=== PATIENT | male | born 1955 | race Caucasian/White ===

== ENCOUNTER 2016-11-04 14:11 | Inpatient (IN) | payer OTHER ==
[~2016-11-04] VITALS: Ht 167.6 cm; Wt 69.5 kg
[2016-11-11] MEDS ORDERED: METF500T PO (10:15)
[2016-11-11] MEDS ORDERED: RED600TA PO (10:15)
[2016-11-18] MEDS ORDERED: POVIDONE IODINE 5% (ANTISEPSIS KIT) 4 APPLICATIONS EACH NARE PRN (11:00)
[2016-11-18] MEDS ORDERED: METOPROLOL TARTRATE 25 MG TAB PO PRN (11:00)
[2016-11-18] MEDS ORDERED: INSULIN HUMAN REGULAR 1,000 UNITS/10 ML VIAL SQ PRN (11:00)
[2016-11-18] MEDS ORDERED: CHLORHEXIDINE GLUCONATE 2 % 1 PACK (2 CLOTHS) TOPICAL PRN (11:00)
[2016-11-18] MEDS ORDERED: LACTATED RINGER'S 1000 ML IV PRN (11:00)
[2016-11-18] MEDS ORDERED: SODIUM CHLORID 0.9% 500 ML IV PRN (11:00)
[2016-11-18 11:18] VITALS: BP 124/75; PULSE 71; RESP 18; TEMP 98.1; O2SAT 98
[2016-11-18] MEDS ORDERED: ceFAZolin 2 GM PREMIX 50 ML IV ONE (11:30)
[2016-11-18] MEDS ORDERED: DEXT 5%-NACL 0.9% 1000 ML INJ 1,000 ML IV SCH (11:30)
[2016-11-18] MEDS ORDERED: METRONIDAZOLE 500 MG/100 ML ISONTONIC SOLN IV ONE (11:30)
[2016-11-18] MEDS ORDERED: PHENYLEPH/NS 1000 MCG/10 ML SYR IV ONE (12:00)
[2016-11-18] MEDS ORDERED: ePHEDrine/NS 25 MG/5 ML SYR IV ONE (12:00)
[2016-11-18] MEDS ORDERED: LACTATED RINGER'S 1000 ML INJ 4,000 ML IV ONE (12:00)
[2016-11-18] MEDS ORDERED: ONDANSETRON HCL 4 MG/2 ML VIAL IV PUSH ONE (12:00)
[2016-11-18] MEDS ORDERED: PROPOFOL 200 MG/20 ML AMP IV ONE (12:00)
[2016-11-18] MEDS ORDERED: SODIUM CHLORID 0.9% 500 ML BAG IV ONE (12:00)
[2016-11-18] MEDS ORDERED: FAMOTIDINE 20 MG/2 ML VIAL ONE (12:06)
[2016-11-18] MEDS ORDERED: MIDAZOLAM HCL 2 MG/2 ML VIAL ONE (12:06)
[2016-11-18] MEDS ORDERED: ACETAMINOPHEN 1000 MG/100 ML VIAL IV ONE (12:20)
[2016-11-18] MEDS ORDERED: SUGAMMADEX SODIUM 200 MG/2 ML VIAL IV PUSH ONE ×2 (12:20)
[2016-11-18] MEDS ORDERED: fentaNYL CITRATE 250 MCG/5 ML AMP ONE ×2 (12:20→16:58)
--- NOTE | 2016-11-18 13:35 | PD.OP ---
Operative Report Date of Surgery: Nov 18, 2016 Preoperative Diagnosis: Colon cancer Postoperative Diagnosis: Same Procedure: Cystoscopy with bilateral ureteral catheter placement Anesthesia: GenAmaris Surgeon: Walter Kearns Ornamental Rail Installer(s): None Resident Surgeon: None Operation and Findings: 61 year-old male colon cancer removed undergo robotic-assisted laparoscopic colectomy by Dr. Almanza. Request for made bilateral ureteral catheter placement patient brought to the operating room and placed in dorsal lithotomy position. His prepped and draped in usual sterile fashion preprocedure antibodies were given. 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 22 Telugu scope was inserted bladder taylor cystoscopy did not reveal any abnormalities. Left ureteral orifice was identified for majority catheter was inserted up the left ureter without difficulty and this was then repeated on the right side. Jacobson was inserted the catheters were attached the Jacobson tolerated the procedure well. Walter Kearns DO Nov 18, 2016 13:35
[2016-11-18] MEDS ORDERED: ceFAZolin INJ 1,000 MG VIAL ONE (16:37)
[2016-11-18] MEDS ORDERED: ceFAZolin INJ 1,000 MG VIAL IV ONE (17:06)
[2016-11-18] MEDS ORDERED: ACETAMINOPHEN 325 MG TAB PO PRN (19:15)
[2016-11-18] MEDS ORDERED: POTASSIUM CHLOR 20 MEQ PREMIX 100 ML IV PRN (19:15)
[2016-11-18] MEDS ORDERED: SODIUM CHLORIDE 0.9% FLUSH 5 ML FLUSH IVF PRN (19:15)
[2016-11-18] MEDS ORDERED: Post-op Orders (for Pharmacy) MISC XX ONE (19:15)
[2016-11-18] MEDS ORDERED: BENZOCAINE 6 MG/MENTHOL 10 MG LOZENGE BUCCAL PRN (19:15)
[2016-11-18] MEDS ORDERED: ACETAMINOPHEN/HYDROcodone 325 MG/5 MG TAB PO PRN ×2 (19:15)
[2016-11-18] MEDS ORDERED: ONDANSETRON HCL 4 MG/2 ML VIAL IV PRN (19:15)
[2016-11-18] MEDS ORDERED: MORPHINE SULFATE 30 MG/30 ML PCA IV SCH (19:15)
[2016-11-18] MEDS ORDERED: diphenhydrAMINE HCL 50 MG/ML VIAL IV PRN (19:15)
[2016-11-18] MEDS ORDERED: NALOXONE HCL 0.4 MG/ML AMP IV PRN (19:15)
[2016-11-18] MEDS ORDERED: ENALAPRILAT 1.25 MG/ML VIAL IV PRN (19:15)
[2016-11-18] MEDS ORDERED: ENALAPRILAT 2.5 MG/2 ML VIAL IV PRN (19:15)
[2016-11-18] MEDS ORDERED: POTASSIUM CHLOR 40 MEQ PREMIX 100 ML IV PRN (19:15)
[2016-11-18] MEDS ORDERED: DO NOT ADM ANY ANTICOAGULANT DRUGS PRN (19:27)
[2016-11-18] MEDS: D5-NS + KCL 20 MEQ INJ 1,000 ML IV SCH (19:45)
[2016-11-18] MEDS: metroNIDAZOLE 500 MG INJ 100 ML IV SCH (19:52)
[2016-11-18] MEDS: KETOROLAC TROMETHAMINE 30 MG/ML (IVP) VIAL IVP SCH (19:52)
[2016-11-18 19:58] LABS: AUTOMATED NEUTROPHIL # 6.3 TH/MM3 (1.8-7.7); BASOPHIL % 0.5 % (0.0-2.0); HEMATOCRIT 40.7 % (39.0-51.0); HEMO FLAGS DIFF FINAL; LYMPH % 6.4 % (9.0-44.0); LYMPHOCYTE # 0.5 TH/MM3 (1.0-4.8); MEAN CELL VOLUME 94.5 FL (80.0-100.0); MEAN CORPUSCULAR HEMOGLOBIN 32.1 PG (27.0-34.0); MEAN CORPUSCULAR HGB CONC 33.9 % (32.0-36.0); NEUT % 90.1 % (16.0-70.0); PLATELET COUNT 154 TH/MM3 (150-450); RED CELL DISTRIBUTION WIDTH 12.6 % (11.6-17.2)
[2016-11-18 20:45] VITALS: BP 137/85; PULSE 80; TEMP 97.5; O2SAT 100
[2016-11-18 20:49] LABS: BICARBONATE 19.9 MEQ/L (21.0-32.0); POTASSIUM 4.3 MEQ/L (3.5-5.1)
[2016-11-18 21:00] VITALS: PULSE 78
[2016-11-18] MEDS: SODIUM CHLORIDE 0.9% FLUSH 5 ML FLUSH IVF SCH (21:00)
[2016-11-18 22:00] VITALS: PULSE 78
[2016-11-18] MEDS: PCA - TOTAL MG MORPHINE DELIVERED PER SHIFT SCH (22:00)
[2016-11-18 23:00] VITALS: BP 129/70; PULSE 66; PULSE 86; TEMP 97.9; O2SAT 98
[2016-11-19] VITALS (16 sets, daily range): BP systolic 114–141; BP diastolic 63–79; PULSE 63–86; RESP 16–20; TEMP 97.8–99.1; O2SAT 93–100
[2016-11-19] MEDS: D5-NS + KCL 20 MEQ INJ 1,000 ML IV SCH (02:55)
[2016-11-19] MEDS: KETOROLAC TROMETHAMINE 30 MG/ML (IVP) VIAL IVP SCH ×4 (02:55→19:46)
[2016-11-19] MEDS: metroNIDAZOLE 500 MG INJ 100 ML IV SCH ×2 (02:55→12:51)
[2016-11-19 04:33] LABS: AUTOMATED NEUTROPHIL # 4.4 TH/MM3 (1.8-7.7); BASOPHIL % 0.3 % (0.0-2.0); HEMATOCRIT 37.3 % (39.0-51.0); HEMO FLAGS DIFF FINAL; LYMPH % 12.8 % (9.0-44.0); LYMPHOCYTE # 0.7 TH/MM3 (1.0-4.8); MEAN CELL VOLUME 94.4 FL (80.0-100.0); MEAN CORPUSCULAR HGB CONC 33.9 % (32.0-36.0); MONO % 7.3 % (0.0-8.0); NEUT % 79.6 % (16.0-70.0); PLATELET COUNT 152 TH/MM3 (150-450); RED BLOOD COUNT 3.95 MIL/MM3 (4.50-5.90); RED CELL DISTRIBUTION WIDTH 12.5 % (11.6-17.2); WHITE BLOOD COUNT 5.5 TH/MM3 (4.0-11.0)
[2016-11-19 05:00] LABS: BICARBONATE 23.8 MEQ/L (21.0-32.0); POTASSIUM 4.5 MEQ/L (3.5-5.1)
[2016-11-19 05:25] LABS: CALCIUM-PROTEIN CORRECTED 8.1 MG/DL (8.5-10.1)
[2016-11-19] MEDS: PCA - TOTAL MG MORPHINE DELIVERED PER SHIFT SCH ×3 (06:00→21:23)
[2016-11-19] MEDS: PANTOPRAZOLE SODIUM 40 MG VIAL IVP SCH (08:02)
[2016-11-19] MEDS: SODIUM CHLORIDE 0.9% FLUSH 5 ML FLUSH IVF SCH ×2 (09:00→19:47)
--- NOTE | 2016-11-19 13:09 | HHI.PR ---
Subjective Remarks No N or V. No BMs Objective Vital Signs Date Time Temp Pulse Resp B/P Pulse Ox O2 Delivery O2 Flow Rate FiO2 11/19/16 11:00 66 11/19/16 11:00 98.4 63 16 122/70 100 11/19/16 10:00 66 11/19/16 09:00 70 11/19/16 08:00 76 11/19/16 07:15 99.0 69 16 114/63 98 11/19/16 07:00 66 11/19/16 06:00 70 11/19/16 06:00 16 11/19/16 05:00 72 11/19/16 04:00 74 11/19/16 03:00 97.8 73 119/65 98 11/19/16 03:00 86 11/19/16 02:00 76 11/19/16 00:00 74 11/18/16 23:00 66 11/18/16 23:00 97.9 86 129/70 98 11/18/16 22:00 78 11/18/16 22:00 18 11/18/16 21:00 78 11/18/16 20:45 97.5 80 137/85 100 11/18/16 20:15 71 16 143/73 100 Room Air 11/18/16 20:00 80 16 152/74 100 Room Air 11/18/16 19:54 14 11/18/16 19:45 71 16 147/80 100 Room Air 11/18/16 19:30 83 16 137/66 100 Nasal Cannula 2 11/18/16 19:15 97.4 87 16 145/71 100 Nasal Cannula 2 I/O 11/18/16 11/18/16 11/18/16 11/19/16 11/19/16 11/19/16 07:00 15:00 23:00 07:00 15:00 23:00 Intake Total 4700 ml 1980 ml Output Total 800 ml 900 ml Balance 3900 ml 1080 ml Intake Oral 0 ml 480 ml IV Total 200 ml 1500 ml Other 4500 ml Output Urine Total 900 ml Estimated Blood Loss 100 ml Other 700 ml Result Diagram: 11/19/16 0325 11/19/16 032 Objective Remarks VS-S Abd: soft,dressings dry I&Os-OK Labs-OK Assessment and Plan Assessment and Plan Stable POD#1 1 Ureteral cath removed, FLD, Decrease IVs-Remove Dextrose Shree Barber MD Nov 19, 2016 13:09
[2016-11-19] MEDS ORDERED: DEXTROSE 50% IN WATER 50 ML VIAL(D50) IV PUSH PRN (13:15)
[2016-11-19] MEDS ORDERED: GLUCAGON 1 MG/ML VIAL OTHER PRN (13:15)
[2016-11-19] MEDS: NS + KCL 20 MEQ INJ 1,000 ML IV SCH ×2 (13:35→23:27)
[2016-11-19] MEDS: INSULIN NovoLIN REGULAR SUPPLEMENTAL SCALE SQ SCH ×2 (16:00→21:00)
[2016-11-19] MEDS: HEPARIN SODIUM - SQ 10,000 UNITS/ML VIAL SQ SCH (18:49)
[2016-11-20 03:00] VITALS: BP 147/81; PULSE 66; RESP 16; TEMP 98.3; O2SAT 95
[2016-11-20] MEDS: KETOROLAC TROMETHAMINE 30 MG/ML (IVP) VIAL IVP SCH ×4 (03:15→20:25)
[2016-11-20] MEDS: INSULIN NovoLIN REGULAR SUPPLEMENTAL SCALE SQ SCH ×4 (05:37→20:29)
[2016-11-20] MEDS: PCA - TOTAL MG MORPHINE DELIVERED PER SHIFT SCH ×2 (05:37→11:49)
[2016-11-20] MEDS: HEPARIN SODIUM - SQ 10,000 UNITS/ML VIAL SQ SCH ×2 (05:39→16:52)
[2016-11-20 07:00] VITALS: BP 146/82; PULSE 70; RESP 16; O2SAT 96
[2016-11-20 07:23] LABS: AUTOMATED NEUTROPHIL # 5.7 TH/MM3 (1.8-7.7); BASOPHIL % 0.5 % (0.0-2.0); EOSINOPHIL % 0.2 % (0.0-4.0); HEMATOCRIT 37.8 % (39.0-51.0); HEMO FLAGS DIFF FINAL; LYMPH % 14.8 % (9.0-44.0); LYMPHOCYTE # 1.1 TH/MM3 (1.0-4.8); MEAN CELL VOLUME 93.9 FL (80.0-100.0); MEAN CORPUSCULAR HEMOGLOBIN 32.3 PG (27.0-34.0); MEAN CORPUSCULAR HGB CONC 34.4 % (32.0-36.0); MONO % 6.6 % (0.0-8.0); NEUT % 77.9 % (16.0-70.0); PLATELET COUNT 146 TH/MM3 (150-450); RED BLOOD COUNT 4.03 MIL/MM3 (4.50-5.90); WHITE BLOOD COUNT 7.3 TH/MM3 (4.0-11.0)
[2016-11-20 08:13] LABS: BICARBONATE 24.6 MEQ/L (21.0-32.0); POTASSIUM 4.3 MEQ/L (3.5-5.1)
[2016-11-20] MEDS: SODIUM CHLORIDE 0.9% FLUSH 5 ML FLUSH IVF SCH ×2 (09:00→20:29)
[2016-11-20] MEDS: PANTOPRAZOLE SODIUM 40 MG VIAL IVP SCH (09:28)
[2016-11-20] MEDS: NS + KCL 20 MEQ INJ 1,000 ML IV SCH (09:39)
--- NOTE | 2016-11-20 10:45 | HHI.PR ---
Subjective Remarks No N or V. Small BM Objective Vital Signs Date Time Temp Pulse Resp B/P Pulse Ox O2 Delivery O2 Flow Rate FiO2 11/20/16 05:37 16 11/20/16 03:00 98.3 66 16 147/81 95 11/19/16 23:10 98.7 75 16 141/79 95 11/19/16 21:23 16 11/19/16 20:04 93 21 11/19/16 19:50 99.1 74 16 128/76 97 11/19/16 16:07 16 11/19/16 15:00 98.3 68 20 131/70 98 11/19/16 14:00 12 11/19/16 11:00 66 11/19/16 11:00 98.4 63 16 122/70 100 I/O 11/19/16 11/19/16 11/19/16 11/20/16 11/20/16 11/20/16 06:59 14:59 22:59 06:59 14:59 22:59 Intake Total 1980 ml 2574 ml 1799 ml Output Total 900 ml 1400 ml 850 ml Balance 1080 ml 1174 ml 949 ml Intake Oral 480 ml 1230 ml 720 ml IV Total 1500 ml 1344 ml 1079 ml Output Urine Total 900 ml 1400 ml 850 ml # Bowel Movements 0 Result Diagram: 11/20/16 0609 11/20/16 0609 Objective Remarks VS-S Abd: soft,dressings removed. Wound clean I&Os-OK Labs-OK Assessment and Plan Assessment and Plan Stable POD#2 Regular diet, Decrease IV, D/C [employer]ODUCT [employer] Shree Barber MD Nov 20, 2016 10:45
[2016-11-20 11:00] VITALS: BP 129/79; PULSE 74; RESP 20; TEMP 98.7; O2SAT 96
[2016-11-20 16:00] VITALS: BP 144/69; PULSE 73; RESP 19; TEMP 97.8; O2SAT 97
[2016-11-20 20:00] VITALS: BP 151/78; PULSE 72; RESP 20; TEMP 98.1; O2SAT 98
--- NOTE | 2016-11-20 20:45 | MP ---
cc: NERY DAILEY M.D. TYSHAWN,RHINA HAWTHORNE M.D., M.D., GERARDO MD DATE OF SURGERY November 18, 2016 PREOPERATIVE DIAGNOSES 1. Sigmoid colon cancer. 2. Cecal polyp with high-grade dysplasia. 3. History of ascending colon polyp with high-grade dysplasia and transverse colon polyp with high-grade dysplasia. POSTOPERATIVE DIAGNOSES 1. Sigmoid colon cancer. 2. Cecal polyp with high-grade dysplasia. 3. History of ascending colon polyp with high-grade dysplasia and transverse colon polyp with high-grade dysplasia. PROCEDURE Robotic subtotal colectomy. SURGEON Nery Dailey MD ORTHOPAEDIC NURSE Reid ANESTHESIA General per ET tube ESTIMATED BLOOD LOSS 200 mL OPERATIVE INDICATIONS The patient is a 58-year-old male who on recent colonoscopy was noted to have five polypoid masses in the colon. One was in the cecum. This was removed partially as an additional one was in the ascending colon, transverse colon and the sigmoid colon. The sigmoid colon did garment turner to be a cancer and the remainder of the polyps all out to have high-grade dysplasia. OPERATIVE FINDINGS Sigmoid colon cancer. A small residual cancer with no sign of any abnormalities within the liver or the remainder of the peritoneal cavity. The patient had a fairly large cecal polyp remaining. OPERATIVE COURSE The patient was brought to the operating room and placed in supine position. After induction of general anesthesia the patient was placed in Rashid stirrups and all bony prominences were carefully padded. The skin of the anterior abdominal wall as well as the perineal area was then prepped and draped in usual sterile fashion. Dr. Kearns then came in and performed cystoscopy with placement of bilateral ureteral catheters, please see his operative note for details. The trocars were then planned as follows due to the plans for the subtotal colectomy. The camera port was placed just to the right of the umbilicus and above it. A 10-12 port was placed in the right anterior axillary line just inside the right anterior superior iliac spine and in line with the umbilicus. A mirror image 10-12 was placed on the left side. A #5 assist port was placed just above the umbilical line eqidistance between the camera port and the #1 port in the right side and an 8 Da Bo port was placed eqidistant between the camera port and the left lateral port. CO2 insufflation was undertaken. A brief abdominal survey was performed. There was no notation of anything that would preclude the robotic approach. The patient was hydroplaned with head down and the omentum was brought up-and-over the transverse colon. The sigmoid colon was directed down into the left and the perineum on the right was scored. The dissection continued posterior to the vessels in this plane until the left ureter was clearly identified and swept away from the specimen. Dissection then followed the vessels up to their takeoff, the inferior mesenteric vessels from their takeoff from the aorta. These were then dissected free circumferential, doubly clamped proximally and distally divided and ligated using Hem-o-jimi clips. Dissection then continued posterior to the inferior hemorrhoidal vein dissecting free the descending colon mesentery from the posterior peritoneum. Dissection then continued inferiorly freeing the rectum from its attachments down to level of the distal rectum. Dissection was continued up and around the right side. The sigmoid colon was then retracted to the left and the lateral peroneal attachments of the sigmoid colon were dissected free. Dissection was continued up the descending colon up to the level of the splenic flexure but not around it. Dissection then continued down into the pelvis freeing the sigmoid colon and the rectum until we had full mobility of the descending colon, sigmoid colon and the proximal and mid rectum. The area of tattooing on the sigmoid colon was clearly visible. A site was then chosen for division of the of bowel just 4-5 cm distal to the area of tattooing. The mesentery at this level was divided using the harmonic scalpel and echelon Endo stapler was placed across the bowel at this level. Bowel was then divided using the echelon Endo stapler. A 29 EEA stapler was then placed up through the anus up to the rectal stump, it came up nicely and a small amount of fibrofatty tissue was cleared of the stapler circumferentially. Dissection then continued posteriorly freeing the descending colon and mesentery to the colonic mesentery up and around the splenic flexure as far as possible with the robot docked in this position. The cecum and terminal ileum were then carefully dissected free from their posterior attachments. This dissection was continued up to just below the hepatic flexure. At this point the robot was undocked, the patient was turned and he was placed in a slightly head-up position to facilitate with the remainder of the dissection. The robot was then docked again over the patient's right shoulder. The omentum was pulled away from the transverse colon and carefully dissected free along its length opening up the lesser sac beginning at the descending colon mesentery which had been opened by our previous dissection. A site was then chosen. The vessel sealer was then brought onto the field and the mesentery of the transverse colon and the ascending colon were serially divided using the vessel sealer paying particular attention to the middle colic vessels and the ileocolic vessels. Eventually we had fully released the attachments of the ascending colon, transverse colon and descending colon. A site was then chosen for division of the terminal ileum just proximal to the ileocecal valve. The mesentery at this level was serially divided and ligated using the vessel sealer. At this point it was elected to open. All dissection beds were examined and no sign of any significant bleeding was noted. The robot was then undocked. A site was then chosen for the excision and a vertical midline incision was made about 10-12 cm midway between the umbilicus and the pubic symphysis. Using electrocautery dissection was carried down to fascia of the anterior abdominal wall which was split the length of the skin incision. A wound protector was then placed. The distal stapled end of bowel was then grasped and gently pulled out through the wound protector and gently removing the rest of the colon and the terminal ileum. The previously chosen area of the terminal ileum was then viewed and the mesentery was nicely cleared. A pursestring stapling device was placed across the bowel. At this level the distal bowel was occluded with Otf clamp. The bowel was amputated and it was taken to back table where it was opened and the cecal polyp was noted to be approximately 2 cm. The sigmoid cancer was not much bigger but was somewhat puckered and was about 3 cm from the distal margin. The anvil from the 29 EEA stapler was attempted be placed into the terminal ileum but was not successful, so I elected to go with a smaller stapler. This was placed in the cut end of the bowel and the previously placed pursestring suture was then secured. The 25 EEA stapler was advanced from the anus and up to the rectal stump. The spike was advanced just posterior to the staple line. The anvil was into the spike and then the stapler was closed being careful that the bowel was not twisted. The stapler was closed and held for 30 seconds, fired and removed thus creating an anterior enterotomy. Both anastomotic rings appeared to be complete and the anastomosis appeared pink and healthy and tension-free. A small amount of warm normal saline was placed into the pelvis. The proximal bowel was occluded with digital pressure and air was insufflated into the rectum until gentle tension was noted in the anastomosis with no sign of any leakage noted. At this point the bowel lay in a nice orientation but there was some serosal thinning so I did elect to put a few stitches to kind of bring together that area on the anterior surface of the anastomosis. A small amount of SNoW was then placed posteriorly in the pelvis to assist with some previous oozing that we had noted. The fascia of the anterior abdominal wall incision was then closed in a running fashion using #1 PDS and a Tegaderm was placed over the wound. CO2 insufflation was resumed. All dissection beds were examined and there was no sign of any significant bleeding noted. The omentum was brought down to lay across the surface of the bowel. The 10/12 trocars in the right side, left side and umbilical area were closed using the crossbow closure device and 0 Vicryl suture. These were held in place but not tied until the CO2 insufflation was removed. This was removed. The fascial sutures were secured. The wounds were copiously irrigated with warm normal saline. The skin of the midline incision was closed in running subcuticular fashion using 3-0 Vicryl and the trocar sites were closed in an interrupted subcuticular fashion using 3-0 Vicryl. Steri-Strips and sterile dressings were then applied. All sponge, needle and instrument counts were correct and the patient was returned to the post anesthesia care unit in stable condition. MD ROSA M Page/NUBIA /7:09 PM /8:00 PM
[2016-11-21] VITALS: BP 159/82; PULSE 76; RESP 20; TEMP 98.8; O2SAT 96
[2016-11-21] MEDS: KETOROLAC TROMETHAMINE 30 MG/ML (IVP) VIAL IVP SCH ×2 (02:00→09:08)
[2016-11-21] MEDS: NS + KCL 20 MEQ INJ 1,000 ML IV SCH (03:47)
[2016-11-21] MEDS: HEPARIN SODIUM - SQ 10,000 UNITS/ML VIAL SQ SCH (05:11)
[2016-11-21] MEDS: INSULIN NovoLIN REGULAR SUPPLEMENTAL SCALE SQ SCH ×2 (05:12→11:00)
[2016-11-21 06:14] LABS: AUTOMATED NEUTROPHIL # 4.2 TH/MM3 (1.8-7.7); BASOPHIL % 0.6 % (0.0-2.0); EOSINOPHIL # 0.1 TH/MM3 (0-0.4); EOSINOPHIL % 1.6 % (0.0-4.0); HEMO FLAGS DIFF FINAL; LYMPH % 20.3 % (9.0-44.0); LYMPHOCYTE # 1.2 TH/MM3 (1.0-4.8); MEAN CELL VOLUME 94.1 FL (80.0-100.0); MEAN CORPUSCULAR HEMOGLOBIN 32.6 PG (27.0-34.0); MEAN CORPUSCULAR HGB CONC 34.6 % (32.0-36.0); MONO % 9.4 % (0.0-8.0); NEUT % 68.1 % (16.0-70.0); PLATELET COUNT 138 TH/MM3 (150-450); RED BLOOD COUNT 4.04 MIL/MM3 (4.50-5.90); RED CELL DISTRIBUTION WIDTH 12.7 % (11.6-17.2); WHITE BLOOD COUNT 6.1 TH/MM3 (4.0-11.0)
[2016-11-21 06:43] LABS: BICARBONATE 27.6 MEQ/L (21.0-32.0); POTASSIUM 3.8 MEQ/L (3.5-5.1)
[2016-11-21 08:36] VITALS: BP 145/74; PULSE 72; RESP 20; TEMP 98.1; O2SAT 96
[2016-11-21] MEDS: SODIUM CHLORIDE 0.9% FLUSH 5 ML FLUSH IVF SCH (09:00)
[2016-11-21] MEDS: PANTOPRAZOLE SODIUM 40 MG VIAL IVP SCH (09:07)
[2016-11-21 12:23] VITALS: BP 140/81; PULSE 70; RESP 20; TEMP 98; O2SAT 95
--- NOTE | 2016-11-21 13:21 | HHI.PR ---
Subjective Remarks POD#3 s/p subtotal colectomy comfortable, ready to go home Objective Vital Signs Date Time Temp Pulse Resp B/P Pulse Ox O2 Delivery O2 Flow Rate FiO2 11/21/16 12:23 98.0 70 20 140/81 95 11/21/16 08:36 98.1 72 20 145/74 96 11/21/16 00:00 98.8 76 20 159/82 96 11/20/16 20:00 98.1 72 20 151/78 98 11/20/16 16:00 97.8 73 19 144/69 97 I/O 11/20/16 11/20/16 11/20/16 11/21/16 11/21/16 11/21/16 07:00 15:00 23:00 07:00 15:00 23:00 Intake Total 1799 ml 1188 ml 778 ml 621 ml Output Total 850 ml 800 ml 350 ml Balance 949 ml 388 ml 778 ml 271 ml Intake Oral 720 ml 880 ml 480 ml 240 ml IV Total 1079 ml 308 ml 298 ml 381 ml Output Urine Total 850 ml 800 ml 350 ml # Voids 5 # Bowel Movements 0 5 Result Diagram: 11/21/16 0539 11/21/16 0539 Objective Remarks Abdomen soft, nondistended, tender wounds clean, tape blister Assessment and Plan Assessment and Plan Doing well Home today Followup in 3 weeks Rut Almanza MD Nov 21, 2016 13:21
[2016-11-21] MEDS ORDERED: HYDR-3516 PO (13:24)
[2016-11-21 13:36] VITALS: O2SAT 93
== END 2016-11-21 15:23 | disposition home or self-care (01) | DRG 331 ==
LOC: HSDI 11-18 10:44 → HCIN 11-18 20:25 → N07B 11-20 14:51
PROVIDERS: ADMIT Colon & Rectal Surgery; ATTEND Colon & Rectal Surgery
PROC: 0T9B80Z Drainage of Bladder with Drainage Device, Via Natural or Artificial Opening Endoscopic (ICD-10-PCS; 2016-11-18)
PROC: 0DBN4ZZ Excision of Sigmoid Colon, Percutaneous Endoscopic Approach (ICD-10-PCS; principal; 2016-11-18 12:35)
PROC: 8E0W8CZ Robotic Assisted Procedure of Trunk Region, Via Natural or Artificial Opening Endoscopic (ICD-10-PCS; 2016-11-18 12:35)
DX: C18.7 Malignant neoplasm of sigmoid colon (principal); D12.0 Benign neoplasm of cecum
CPT/HCPCS: 80048; 82948; 84155; 85025; 86850; 86900; 86901; 88309; 94150; C9113; J0131; J0690; J1644; J1885; J2250; J2270; J2370; J2405; J3010; J3480; J7040; J7120

== ENCOUNTER → 2016-11-11 | Outpatient (CLI) | payer OTHER ==
[~2016-11-11] MED LIST: HYDR-3516 PO; METF500T PO; RED600TA PO
[2016-11-11 10:27] LABS: AUTOMATED NEUTROPHIL # 2.3 TH/MM3 (1.8-7.7); BASOPHIL # 0.1 TH/MM3 (0-0.2); BASOPHIL % 1.4 % (0.0-2.0); EOSINOPHIL # 0.1 TH/MM3 (0-0.4); EOSINOPHIL % 2.9 % (0.0-4.0); HEMATOCRIT 41.7 % (39.0-51.0); HEMO FLAGS DIFF FINAL; LYMPH % 32.5 % (9.0-44.0); LYMPHOCYTE # 1.4 TH/MM3 (1.0-4.8); MEAN CELL VOLUME 93.7 FL (80.0-100.0); MEAN CORPUSCULAR HEMOGLOBIN 32.3 PG (27.0-34.0); MEAN CORPUSCULAR HGB CONC 34.4 % (32.0-36.0); MONO % 10.1 % (0.0-8.0); NEUT % 53.1 % (16.0-70.0); PLATELET COUNT 176 TH/MM3 (150-450); RED BLOOD COUNT 4.45 MIL/MM3 (4.50-5.90); RED CELL DISTRIBUTION WIDTH 13.1 % (11.6-17.2); WHITE BLOOD COUNT 4.4 TH/MM3 (4.0-11.0)
[2016-11-11 10:34] LABS: APTT (PATIENT) 28.9 SEC (24.3-30.1); PROTHROMBIN TIME - PATIENT 11.3 SEC (9.8-11.6)
[2016-11-11 10:53] LABS: ALT (GPT) 26 U/L (12-78); ANION GAP 9 MEQ/L (5-15); AST (GOT) 22 U/L (15-37); BLOOD UREA NITROGEN 14 MG/DL (7-18); CHLORIDE 102 MEQ/L (98-107); GLOMERULAR FILTRATION RATE 92 ML/MIN (>89); POTASSIUM 4.2 MEQ/L (3.5-5.1); SODIUM (NA) 138 MEQ/L (136-145)
[2016-11-11 10:55] LABS: ALKALINE PHOSPHATASE 22 U/L (45-117); TOTAL BILIRUBIN ADULT 0.8 MG/DL (0.2-1.0)
[2016-11-11 11:24] LABS: BLOOD, URINE NEG (NEG); COMMENT (UR) CULT NOT INDICATED; CULTURE IF INDICATED CULT NOT INDICATED; GLUCOSE,URINE NEG (NEG); KETONE, URINE 10 mg/dL (NEG); MUCUS URINE FEW /lpf (OCC); NITRITE,URINE NEG (NEG); PH, URINE 5.5 (5.0-8.5); SQUAMOUS EPITHELIAL CELL URINE <1 /hpf (0-5); URINE COLOR YELLOW (YELLW/STRAW)
--- NOTE | 2016-11-11 14:27 | EKG ---
Date Performed: 11/11/2016 Time Performed: 10:11:31 PTAGE: 61 years EKG: Sinus rhythm NORMAL ECG NO PREVIOUS TRACING DOCTOR: Daren Almanza Interpretating Date/Time 11/11/2016 14:25:48
== END ==
LOC: CPRE 09:10
PROVIDERS: ATTEND Colon & Rectal Surgery
DX: Z01.810 Encounter for preprocedural cardiovascular examination (principal); Z01.812 Encounter for preprocedural laboratory examination; C18.7 Malignant neoplasm of sigmoid colon; D12.0 Benign neoplasm of cecum; D12.2 Benign neoplasm of ascending colon; D12.3 Benign neoplasm of transverse colon
CPT/HCPCS: 36415; 80053; 81001; 82378; 85025; 85610; 85730; 93005